=== PATIENT | female | born 1945 | race Asian ===

== ENCOUNTER → 2019-02-04 09:55 | Outpatient (CLI) | payer MEDICARE, SELFPAY ==
[2019-02-04 11:05] LABS: Add Manual Diff / Slide Review NO; Basophils Absolute Auto 100 /uL (0-100); Basophils Percent Auto 1.9 % (0-2); Eosinophils Absolute Auto 200 /uL (0-450); Eosinophils Percent Auto 5.4 % (2-4); Hematocrit 40.2 % (36-46); Hemoglobin 14.3 g/dL (12.0-16.0); Lymphocytes Absolute Auto 2200 /uL (1100-4500); Lymphocytes Percent Auto 49.9 % (25-40); Mean Corpuscular HGB Conc 35.5 % (30-36); Mean Corpuscular Volume 90.2 fL (80-100); Monocytes Absolute Auto 400 /uL (0-900); Monocytes Percent Auto 8.8 % (3-14); Neutrophils Absolute Auto 1500 /uL (1500-7000); Platelet Count 226 X10^3/uL (150-400); Red Blood Cell Count 4.46 X10^6/uL (4.0-5.2); Red Cell Distribution Width 12.3 % (11.6-14.8); White Blood Cell Count 4.5 X10^3/uL (4.5-11.0)
[2019-02-04 12:10] LABS: Alanine Aminotransferase 22 IU/L (9-52); Albumin Globulin Ratio 1.4 (1.0-2.8); Alkaline Phosphatase 59 U/L (38-126); Aspartate Aminotransferase 38 IU/L (14-36); BUN Creatinine Ratio 17.8 (6-22); Blood Urea Nitrogen 16 mg/dL (7-17); Calcium 9.9 mg/dL (8.4-10.2); Carbon Dioxide 29 mmol/L (22-32); Chloride 97 mmol/L (98-107); Cholesterol 232 mg/dL (140-199); Estimated Glomerular Filt Rate > 60.0 mL/min (>60); Globulin 3.7 g/dL (1.7-4.1); Glucose 108 mg/dL (80-110); HDL Cholesterol 72 mg/dL (40-60); HEMOLYSIS < 15 (0-50); LDL Cholesterol Calculated 137 mg/dL (<100); Sodium 137 mmol/L (137-145); Total Protein 8.7 g/dL (6.3-8.2); Triglycerides 117 mg/dL (35-150)
[2019-02-04 12:38] LABS: Thyroid Stimulating Hormone 1.71 uIU/mL (0.47-4.68)
== END ==
PROVIDERS: Family Provider Internal Medicine; PCP Internal Medicine; Visit Provider Internal Medicine
DX: I10 Essential (primary) hypertension (principal); E78.5 Hyperlipidemia, unspecified
CPT/HCPCS: 36415; 80053; 80061; 84443; 85025

== ENCOUNTER → 2019-02-10 14:49 | Outpatient (CLI) | payer MEDICARE, SELFPAY ==
--- NOTE | 2019-02-10 | DI.MG.S_ITS ---
BILATERAL DIGITAL SCREENING MAMMOGRAM 3D/2D WITH CAD: 02/10/2019 CLINICAL: Routine screening. Family history of breast cancer. Comparison is made to exams dated: 01/29/2018 mammogram, 12/24/2014 mammogram, and 02/06/2002 mammogram - [facility]. The tissue of both breasts is predominantly fatty. Current study was also evaluated with a Computer Aided Detection (CAD) system. No significant masses, calcifications, or other findings are seen in either breast. There has been no significant interval change. IMPRESSION: NEGATIVE There is no mammographic evidence of malignancy. A 1 year screening mammogram is recommended. This exam was interpreted at Station ID: [id number]. NOTE: For mammograms, a report in lay terms will be sent to the patient. Approximately 15% of breast malignancies will not be visualized mammographically. In the management of a palpable breast mass, a negative mammogram must not discourage biopsy of a clinically suspicious lesion. Electronically Signed By: Solange romano/kayy:02/10/2019 15:27:48 letter sent: Normal Exam ACR BI-RADS Category 1: Negative 3341F
== END ==
PROVIDERS: Family Provider Internal Medicine; PCP Internal Medicine; Visit Provider Internal Medicine
DX: Z12.31 Encounter for screening mammogram for malignant neoplasm of breast (principal); Z80.3 Family history of malignant neoplasm of breast
CPT/HCPCS: 77063; 77067

== ENCOUNTER → 2019-08-22 14:06 | Outpatient (CLI) | payer MEDICARE, SELFPAY | PROVIDERS: PCP Internal Medicine; Visit Provider Internal Medicine | DX: M85.852 Other specified disorders of bone density and structure, left thigh (principal); Z78.0 Asymptomatic menopausal state; I10 Essential (primary) hypertension; E78.5 Hyperlipidemia, unspecified; M25.50 Pain in unspecified joint; Z87.891 Personal history of nicotine dependence | CPT/HCPCS: 36415; 77080; 80053; 80061; 85025 ==

== ENCOUNTER → 2019-08-22 14:23 | Outpatient (CLI) | payer MEDICARE, SELFPAY ==
[2019-08-22 14:47] LABS: Add Manual Diff / Slide Review NO; Basophils Absolute Auto 100 /uL (0-100); Basophils Percent Auto 2.4 % (0-2); Eosinophils Absolute Auto 200 /uL (0-450); Eosinophils Percent Auto 3.2 % (2-4); Hemoglobin 13.6 g/dL (12.0-16.0); Lymphocytes Absolute Auto 1900 /uL (1100-4500); Lymphocytes Percent Auto 36.4 % (25-40); Mean Corpuscular Hemoglobin 31.7 PG (26-34); Mean Corpuscular Volume 90.6 fL (80-100); Monocytes Absolute Auto 400 /uL (0-900); Monocytes Percent Auto 8.5 % (3-14); Neutrophils Absolute Auto 2600 /uL (1500-7000); Neutrophils Percent Auto 49.5 % (50-75); Platelet Count 230 X10^3/uL (150-400); White Blood Cell Count 5.2 X10^3/uL (4.5-11.0)
[2019-08-22 15:33] LABS: Alanine Aminotransferase 19 IU/L (<35); Albumin 4.5 g/dL (3.5-5.0); Albumin Globulin Ratio 1.6 (1.0-2.8); Alkaline Phosphatase 73 U/L (38-126); Aspartate Aminotransferase 33 IU/L (14-36); BUN Creatinine Ratio 18.9 (6-22); Blood Urea Nitrogen 17 mg/dL (7-17); Calcium 9.5 mg/dL (8.4-10.2); Carbon Dioxide 31 mmol/L (22-32); Chloride 97 mmol/L (98-107); Cholesterol 211 mg/dL (140-199); Estimated Glomerular Filt Rate > 60.0 mL/min (>60); Globulin 2.9 g/dL (1.7-4.1); Glucose 102 mg/dL (80-110); HDL Cholesterol 83 mg/dL (40-60); HEMOLYSIS < 15 (0-50); LDL Cholesterol Calculated 105 mg/dL (<100); Potassium 3.4 mmol/L (3.4-5.1); Sodium 137 mmol/L (137-145); Total Protein 7.4 g/dL (6.3-8.2); Triglycerides 114 mg/dL (35-150)
== END ==
PROVIDERS: PCP Internal Medicine; Visit Provider Internal Medicine
DX: I10 Essential (primary) hypertension (principal); E78.5 Hyperlipidemia, unspecified; M25.50 Pain in unspecified joint
CPT/HCPCS: 36415; 80053; 80061; 85025

== ENCOUNTER → 2020-10-26 10:41 | Outpatient (CLI) | payer MEDICARE, SELFPAY ==
[2020-10-26 12:13] LABS: Add Manual Diff / Slide Review NO; Basophils Absolute Auto 100 /uL (0-100); Basophils Percent Auto 1.9 % (0-2); Eosinophils Absolute Auto 100 /uL (0-450); Eosinophils Percent Auto 2.7 % (2-4); Hematocrit 40.4 % (36-46); Hemoglobin 13.8 g/dL (12.0-16.0); Lymphocytes Absolute Auto 1300 /uL (1100-4500); Lymphocytes Percent Auto 29.7 % (25-40); Mean Corpuscular HGB Conc 34.1 % (30-36); Mean Corpuscular Hemoglobin 31.1 PG (26-34); Mean Corpuscular Volume 91.3 fL (80-100); Monocytes Absolute Auto 400 /uL (0-900); Neutrophils Absolute Auto 2500 /uL (1500-7000); Neutrophils Percent Auto 57.7 % (50-75); Platelet Count 221 X10^3/uL (150-400); Red Blood Cell Count 4.43 X10^6/uL (4.0-5.2); Red Cell Distribution Width 12.6 % (11.6-14.8); White Blood Cell Count 4.4 X10^3/uL (4.5-11.0)
[2020-10-26 12:34] LABS: Alanine Aminotransferase 22 IU/L (<35); Albumin 4.5 g/dL (3.5-5.0); Albumin Globulin Ratio 1.4 (1.0-2.8); Alkaline Phosphatase 64 U/L (38-126); Aspartate Aminotransferase 37 IU/L (14-36); BUN Creatinine Ratio 23.3 (6-22); Bilirubin Total 1.4 mg/dL (0.2-1.3); Blood Urea Nitrogen 20 mg/dL (7-17); Calcium 9.4 mg/dL (8.4-10.2); Carbon Dioxide 32 mmol/L (22-32); Chloride 97 mmol/L (98-107); Cholesterol 218 mg/dL (140-199); Estimated Glomerular Filt Rate > 60.0 mL/min (>60); Globulin 3.2 g/dL (1.7-4.1); Glucose 89 mg/dL (80-110); HDL Cholesterol 79 mg/dL (40-60); HEMOLYSIS < 15 (0-50); LDL Cholesterol Calculated 124 mg/dL (<100); Potassium 3.2 mmol/L (3.4-5.1); Sodium 133 mmol/L (137-145); Total Protein 7.7 g/dL (6.3-8.2); Triglycerides 73 mg/dL (35-150)
[2020-10-26 13:04] LABS: Thyroid Stimulating Hormone 1.07 uIU/mL (0.47-4.68)
[2020-10-28 11:37] LABS: Hep C Virus Ab w/Reflex Quant NEGATIVE s/c (NEGATIVE)
== END ==
PROVIDERS: PCP Internal Medicine; Referring Provider Internal Medicine; Visit Provider Internal Medicine
DX: Z13.0 Encounter for screening for diseases of the blood and blood-forming organs and certain disorders involving the immune mechanism (principal); I10 Essential (primary) hypertension; E78.5 Hyperlipidemia, unspecified; Z13.29 Encounter for screening for other suspected endocrine disorder; Z11.59 Encounter for screening for other viral diseases
CPT/HCPCS: 36415; 80053; 80061; 84443; 85025; 86803

== ENCOUNTER → 2020-11-06 10:31 | Outpatient (CLI) | payer MEDICARE, SELFPAY ==
--- NOTE | 2020-11-06 | DI.US.S_ITS ---
PROCEDURE: US CAROTID DOPPLER BI INDICATIONS: Other specified symptoms and signs involving the c TECHNIQUE: Color and pulse Doppler interrogation was performed of both carotid systems, with image documentation and velocity measurements. COMPARISON: None. FINDINGS: Stenosis calculations are based on SRU (Society of Radiologists in Ultrasound) criteria. Right side: Common Carotid Artery PSV: - Distal: 69.9 cm/s Internal Carotid Artery PSV - 62 cm/s EDV- 23 cm/s External Carotid Artery PSV- Proximal: 63 cm/s ICA/CCA PSV- Ratio: 0.88 Cabrera scale imaging description: No plaque. Widely patent vessels Percent internal carotid artery stenosis: None . Vertebral artery: Flow direction is antegrade. Left side: Common Carotid Artery PSV- Distal: 68 cm/s Internal Carotid Artery PSV- 62 cm/s EDV- 23 cm/s External Carotid Artery PSV- Proximal: 58 cm/s ICA/CCA PSV- Ratio: 0.9 Cabrera scale imaging description: Widely patent vessels. No plaque. Percent internal carotid artery stenosis: Non . Vertebral artery: Flow direction is antegrade. IMPRESSION: Unremarkable carotid ultrasound. Widely patent vessels. No plaque. Dictated by: Yamil Ramos M.D. on 11/06/2020 at 11:41 Approved by: Yamil Ramos M.D. on 11/06/2020 at 11:47
== END ==
PROVIDERS: PCP Internal Medicine; Referring Provider Internal Medicine; Visit Provider Internal Medicine
DX: R09.89 Other specified symptoms and signs involving the circulatory and respiratory systems (principal)
CPT/HCPCS: 93880

== ENCOUNTER → 2021-02-01 10:44 | Outpatient (CLI) | payer MEDICARE, SELFPAY ==
[2021-02-01 12:12] LABS: Blood Urea Nitrogen 18 mg/dL (7-17); Carbon Dioxide 26 mmol/L (22-32); Chloride 103 mmol/L (98-107); Estimated Glomerular Filt Rate > 60.0 mL/min (>60); Glucose 108 mg/dL (80-110); HEMOLYSIS < 15 (0-50); Potassium 4.1 mmol/L (3.4-5.1); Sodium 138 mmol/L (137-145)
== END ==
PROVIDERS: PCP Internal Medicine; Referring Provider Internal Medicine; Visit Provider Internal Medicine
DX: E87.1 Hypo-osmolality and hyponatremia (principal); E87.6 Hypokalemia; I10 Essential (primary) hypertension
CPT/HCPCS: 36415; 80048

== ENCOUNTER → 2021-05-24 09:52 | Outpatient (CLI) | payer MEDICARE, SELFPAY ==
[2021-05-24 10:28] LABS: Hemoglobin A1C% w Est Avg Glu 5.6 % (4.0-6.0)
[2021-05-24 10:29] LABS: Alanine Aminotransferase 22 IU/L (<35); Albumin 4.5 g/dL (3.5-5.0); Albumin Globulin Ratio 1.5 (1.0-2.8); Alkaline Phosphatase 62 U/L (38-126); Aspartate Aminotransferase 36 IU/L (14-36); Bilirubin Total 1.1 mg/dL (0.2-1.3); Blood Urea Nitrogen 17 mg/dL (7-17); Calcium 9.6 mg/dL (8.4-10.2); Carbon Dioxide 26 mmol/L (22-32); Chloride 104 mmol/L (98-107); Cholesterol 203 mg/dL (140-199); Estimated Glomerular Filt Rate > 60.0 mL/min (>60); Glucose 109 mg/dL (80-110); HDL Cholesterol 83 mg/dL (40-60); HEMOLYSIS < 15 (0-50); LDL Cholesterol Calculated 102 mg/dL (<100); Potassium 4.5 mmol/L (3.4-5.1); Sodium 138 mmol/L (137-145); Total Protein 7.5 g/dL (6.3-8.2); Triglycerides 90 mg/dL (35-150)
== END ==
PROVIDERS: PCP Internal Medicine; Referring Provider Internal Medicine; Visit Provider Internal Medicine
DX: E87.1 Hypo-osmolality and hyponatremia (principal); I10 Essential (primary) hypertension; E87.6 Hypokalemia; E87.5 Hyperkalemia
CPT/HCPCS: 36415; 80053; 80061; 83036

== ENCOUNTER → 2022-09-07 15:28 | Outpatient (CLI) | payer MEDICARE, SELFPAY ==
[2022-09-07 17:38] LABS: Add Manual Diff / Slide Review NO; Basophils Absolute Auto 100 /uL (0-100); Basophils Percent Auto 1.3 % (0-2); Eosinophils Absolute Auto 200 /uL (0-450); Eosinophils Percent Auto 4.5 % (2-4); Hematocrit 40.3 % (36-46); Hemoglobin 13.6 g/dL (12.0-16.0); Lymphocytes Absolute Auto 2000 /uL (1100-4500); Lymphocytes Percent Auto 42.1 % (25-40); Mean Corpuscular HGB Conc 33.8 % (30-36); Mean Corpuscular Hemoglobin 30.6 PG (26-34); Mean Corpuscular Volume 90.7 fL (80-100); Monocytes Absolute Auto 300 /uL (0-900); Monocytes Percent Auto 7.1 % (3-14); Neutrophils Absolute Auto 2100 /uL (1500-7000); Platelet Count 225 X10^3/uL (150-400); Red Blood Cell Count 4.44 X10^6/uL (4.0-5.2); Red Cell Distribution Width 13.2 % (11.6-14.8); White Blood Cell Count 4.7 X10^3/uL (4.5-11.0)
[2022-09-07 18:11] LABS: Alanine Aminotransferase 26 IU/L (<35); Albumin 4.6 g/dL (3.5-5.0); Albumin Globulin Ratio 1.3 (1.0-2.8); Alkaline Phosphatase 68 U/L (38-126); Aspartate Aminotransferase 34 IU/L (14-36); BUN Creatinine Ratio 18.1 (6-22); Bilirubin Total 0.5 mg/dL (0.2-1.3); Blood Urea Nitrogen 15 mg/dL (7-17); Calcium 9.2 mg/dL (8.4-10.2); Carbon Dioxide 28 mmol/L (22-32); Chloride 102 mmol/L (98-107); Cholesterol 213 mg/dL (140-199); Estimated Glomerular Filt Rate > 60 mL/min (>60); Globulin 3.5 g/dL (1.7-4.1); Glucose 101 mg/dL (80-110); HDL Cholesterol 64 mg/dL (40-60); HEMOLYSIS 19 (0-50); Potassium 4.7 mmol/L (3.4-5.1); Sodium 138 mmol/L (137-145); Total Protein 8.1 g/dL (6.3-8.2); Triglycerides 441 mg/dL (35-150)
[2022-09-07 18:34] LABS: Thyroid Stimulating Hormone 1.81 uIU/mL (0.47-4.68)
== END ==
PROVIDERS: PCP Internal Medicine; Referring Provider Internal Medicine; Visit Provider Internal Medicine
DX: Z00.00 Encounter for general adult medical examination without abnormal findings (principal); I10 Essential (primary) hypertension; E78.5 Hyperlipidemia, unspecified; M25.50 Pain in unspecified joint
CPT/HCPCS: 36415; 80053; 80061; 84443; 85025

== ENCOUNTER → 2022-09-17 13:37 | Outpatient (CLI) | payer MEDICARE, SELFPAY ==
--- NOTE | 2022-09-17 | DI.MG.S_ITS ---
BILATERAL DIGITAL SCREENING MAMMOGRAM 3D/2D WITH CAD: 09/17/2022 CLINICAL: Routine screening. Family history of breast cancer. Comparison is made to exams dated: 02/10/2019 mammogram, 01/29/2018 mammogram, and 12/24/2014 mammogram - [facility]. There are scattered areas of fibroglandular density in both breasts (category b / 25%-50% glandular tissue). Current study was also evaluated with a Computer Aided Detection (CAD) system. There are benign vascular calcifications in both breasts. No significant masses, calcifications, or other findings are seen in either breast. There has been no significant interval change. IMPRESSION: BENIGN There is no mammographic evidence of malignancy. A 1 year screening mammogram is recommended. Based on the Tyrer Cuzick model (a risk assessment model) the patient's lifetime risk is 2.1% and her 10 year risk is 0.0%. According to the ACR, ACS, and NCCN guidelines, an annual breast MRI exam along with mammogram is recommended if the patient's lifetime risk is 20% or greater. This exam was interpreted at Station ID: [id number]. NOTE: For mammograms, a report in lay terms will be sent to the patient. Approximately 15% of breast malignancies will not be visualized mammographically. In the management of a palpable breast mass, a negative mammogram must not discourage biopsy of a clinically suspicious lesion. Electronically Signed By: Juan Jose hitchcock/kayy:09/17/2022 14:58:57 letter sent: Normal Exam ACR BI-RADS Category 2: Benign Finding(s) 3342F
== END ==
PROVIDERS: PCP Internal Medicine; Referring Provider Internal Medicine; Visit Provider Internal Medicine
DX: Z12.31 Encounter for screening mammogram for malignant neoplasm of breast (principal); Z80.3 Family history of malignant neoplasm of breast
CPT/HCPCS: 77063; 77067

== ENCOUNTER → 2022-09-26 10:34 | Outpatient (CLI) | payer MEDICARE, SELFPAY ==
[2022-09-26 12:09] LABS: Cholesterol 210 mg/dL (140-199); HDL Cholesterol 80 mg/dL (40-60); LDL Cholesterol Calculated 100 mg/dL (<100); Triglycerides 148 mg/dL (35-150)
== END ==
PROVIDERS: PCP Internal Medicine; Referring Provider Internal Medicine; Visit Provider Internal Medicine
DX: E78.5 Hyperlipidemia, unspecified (principal)
CPT/HCPCS: 36415; 80061

== ENCOUNTER → 2023-01-09 10:27 | Outpatient (CLI) | payer MEDICARE, SELFPAY ==
[2023-01-09 11:43] LABS: BUN Creatinine Ratio 15.4 (6-22); Blood Urea Nitrogen 12 mg/dL (7-17); Calcium 9.5 mg/dL (8.4-10.2); Carbon Dioxide 29 mmol/L (22-32); Chloride 98 mmol/L (98-107); Estimated Glomerular Filt Rate > 60 mL/min (>60); Glucose 105 mg/dL (80-110); HEMOLYSIS < 15 (0-50); Potassium 4.2 mmol/L (3.4-5.1); Sodium 136 mmol/L (137-145)
== END ==
PROVIDERS: PCP Internal Medicine; Referring Provider Internal Medicine; Visit Provider Internal Medicine
DX: I10 Essential (primary) hypertension (principal)
CPT/HCPCS: 36415; 80048

== ENCOUNTER 2023-07-05 17:51 | Emergency (ER) | payer MEDICARE, SELFPAY ==
[2023-07-05] VITALS (13 sets, daily range): BP systolic 138–211; BP diastolic 61–100; PULSE 52–64; RESP 15–24; TEMP 36.7; O2SAT 96–98; BMI 24.4
--- NOTE | 2023-07-05 17:59 | DI.RAD.S_ITS ---
PROCEDURE: XR CHEST 1V INDICATIONS: chest pain TECHNIQUE: One view of the chest was acquired. COMPARISON: None. FINDINGS: Surgical changes and devices: None. Lungs and pleura: Lungs are clear. No pleural effusions or pneumothorax. Mediastinum: Mediastinal contours appear normal. Heart size is normal. Atherosclerotic calcification of the aortic arch is noted. Bones and chest wall: No suspicious bony lesions. Age-appropriate bony degenerative changes are seen. Overlying soft tissues appear unremarkable. IMPRESSION: Portable chest within normal limits for age. Dictated by: Candido Frazier M.D. on 07/05/2023 at 17:50 Approved by: Candido Frazier M.D. on 07/05/2023 at 17:50
[2023-07-05 18:31] LABS: Add Manual Diff / Slide Review NO; Basophils Absolute Auto 100 /uL (0-100); Basophils Percent Auto 1.8 % (0-2); Eosinophils Absolute Auto 300 /uL (0-450); Eosinophils Percent Auto 6.1 % (2-4); Hematocrit 38.9 % (36-46); Hemoglobin 13.7 g/dL (12.0-16.0); Lymphocytes Absolute Auto 2500 /uL (1100-4500); Lymphocytes Percent Auto 48.5 % (25-40); Mean Corpuscular HGB Conc 35.3 % (30-36); Mean Corpuscular Hemoglobin 31.1 PG (26-34); Mean Corpuscular Volume 88.1 fL (80-100); Monocytes Absolute Auto 400 /uL (0-900); Monocytes Percent Auto 8.5 % (3-14); Neutrophils Absolute Auto 1800 /uL (1500-7000); Neutrophils Percent Auto 35.1 % (50-75); Platelet Count 225 X10^3/uL (150-400); Red Blood Cell Count 4.41 X10^6/uL (4.0-5.2); Red Cell Distribution Width 12.8 % (11.6-14.8); White Blood Cell Count 5.2 X10^3/uL (4.5-11.0)
[2023-07-05 18:32] LABS: INR 0.9 (0.9-1.3); Prothrombin Time 10.8 SECONDS (10.1-12.7)
[2023-07-05 18:34] LABS: PTT Partial Thromboplastin Tim 30 SECONDS (26-36)
[2023-07-05 18:37] LABS: Alanine Aminotransferase 21 IU/L (<35); Albumin 4.7 g/dL (3.5-5.0); Albumin Globulin Ratio 1.3 (1.0-2.8); Alkaline Phosphatase 69 U/L (38-126); Aspartate Aminotransferase 30 IU/L (14-36); BUN Creatinine Ratio 11.8 (6-22); Bilirubin Total 0.6 mg/dL (0.2-1.3); Blood Urea Nitrogen 9 mg/dL (7-17); Calcium 9.8 mg/dL (8.4-10.2); Carbon Dioxide 27 mmol/L (22-32); Chloride 94 mmol/L (98-107); Creatine Kinase 77 U/L (30-135); Estimated Glomerular Filt Rate > 60 mL/min (>60); Globulin 3.6 g/dL (1.7-4.1); Glucose 106 mg/dL (80-110); HEMOLYSIS < 15 (0-50); Lipase 86 U/L (23-300); Magnesium 1.9 mg/dL (1.6-2.3); Potassium 3.4 mmol/L (3.4-5.1); Sodium 130 mmol/L (137-145); Total Protein 8.3 g/dL (6.3-8.2)
[2023-07-05 18:49] LABS: Troponin I < 0.012 ng/mL (0.01-0.034)
--- NOTE | 2023-07-05 20:15 | ED_ITS ---
HPI - General Adult General Chief complaint: Hypertension Stated complaint: High BP Time Seen by Provider: 07/05/23 20:14 Source: patient and family Mode of arrival: Ambulatory Limitations: no limitations History of Present Illness HPI narrative: 78-year-old female presents with complaint of elevated blood pressure had checked at home was 187/88 on repeat was 192/103. Patient states she just felt sort of funny which is why they checked a little lightheaded no syncope. No chest pain, no shortness of breath she would a little bit after she arrived, no diaphoresis. No nausea or vomiting, no diarrhea. She is chronically constipated but having bowel movements. No urinary symptoms. No new swelling. Patient takes medication for hypertension dyslipidemia. No prior strokes, heart attacks or diabetes. No prior surgeries. Allergic to codeine and aspirin makes her stomach hurt. No tobacco, alcohol or illicit. Patient's primary care is Darby Koo. Related Data Previous Rx's Medication Instructions Recorded ibuprofen 600 mg tablet 600 mg PO Q6HP PRN #20 tabs 08/24/16 meloxicam 15 mg tablet See Rx Instructions PO DAILY #30 09/05/18 tabs Disabled Parking Permit See Rx Instructions .Route 09/12/18 .COMPLEX #1 unit atenolol 50 mg tablet 50 mg PO QDAY ##90 10/18/18 chlorthalidone 25 mg tablet 25 mg PO QDAY #90 tabs 10/18/18 simvastatin 40 mg tablet (Zocor) 40 mg PO Q DAY #90 tabs 10/18/18 Allergies Allergy/AdvReac Type Severity Reaction Status Date / Time aspirin [ASPIRIN] Allergy Unknown stomach Unverified 07/05/23 17:54 ache codeine [CODEINE] Allergy Unknown Pressure Unverified 07/05/23 17:54 in head Review of Systems Review of Systems ROS Unobtainable: All systems reviewed & are unremarkable except as noted in HPI and below Patient History Medical History Chicken pox Measles Surgical History Anesthesia Status post knee surgery Family History Grandfather Cancer Grandmother Cancer Mother Hypertension High cholesterol Social History Smoking Status: Former smoker Smoking Status: Former smoker Substance Use Type: does not use Exam Narrative Exam Narrative: GENERAL: Alert and oriented x three, well-appearing elderly female in no acute distress. HEENT: Head normocephalic, atraumatic, EOMI, pupils reactive, face symmetric, moist mucous membranes NECK: Supple, full range of motion CARDIOVASCULAR: Regular rate and rhythm without murmurs, rubs or gallops. No edema bilateral lower extremities. No JVD. RESPIRATORY: Breath sounds equal bilaterally, no wheezes rales or rhonchi. No tachypnea. No accessory muscle use. ABDOMEN: Soft, nontender. Normoactive bowel sounds all 4 quadrants. No guarding or rebound, rigidity, no mass : No CVA tenderness EXTREMITIES: Normal range of motion, no clubbing or edema. Neurovascularly intact NEUROLOGICAL: Cranial nerves II through XII grossly intact. Moving all extremities SKIN: Warm, dry, no petechiae, no rashes or lesions. Initial Vital Signs Initial Vital Signs: Vital Signs Temperature 98.0 F 07/05/23 17:54 Pulse Rate 64 07/05/23 17:54 Respiratory Rate 17 07/05/23 17:54 Blood Pressure 211/100 H 07/05/23 17:54 Pulse Oximetry 97 07/05/23 17:54 Oxygen Delivery Method Room Air 07/05/23 17:54 Course Orders Ordered: ED Orders 07/05/23 17:59 XR chest 1V Stat EKG-12 Lead Stat 07/05/23 18:10 Complete Blood Count AUTO DIFF Stat Comprehensive Metabolic Panel Stat Lipase Stat Magnesium Stat PTT Partial Thromboplastin Salo Stat Prothrombin Time INR Stat Troponin & CK Cardiac Panel Stat 07/05/23 20:20 Trop I [Troponin I] Stat Vital Signs Vital signs: Vital Signs - 8 hr 07/05/23 22:00 07/05/23 22:00 07/05/23 22:30 Pulse Rate 55 L Respiratory Rate 19 Blood Pressure 166/74 H 163/73 H Pulse Oximetry 97 07/05/23 22:30 07/05/23 23:00 07/05/23 23:01 Pulse Rate 56 L 54 L 55 L Respiratory Rate 17 17 15 Blood Pressure Pulse Oximetry 97 97 97 07/05/23 23:01 07/05/23 23:30 07/05/23 23:31 Pulse Rate 54 L Respiratory Rate 20 Blood Pressure 153/69 H 140/65 Pulse Oximetry 96 07/05/23 23:31 Pulse Rate 54 L Respiratory Rate 19 Blood Pressure Pulse Oximetry 97 Medical Decision Making Lab Data 07/05/23 18:10 07/05/23 18:10 Labs: Lab Results 07/05/23 07/05/23 07/05/23 Range/Units 18:10 18:10 18:10 WBC 5.2 (4.5-11.0) X10^3/uL RBC 4.41 (4.0-5.2) X10^6/uL Hgb 13.7 (12.0-16.0) g/dL Hct 38.9 (36-46) % MCV 88.1 (80-100) fL MCH 31.1 (26-34) PG MCHC 35.3 (30-36) % RDW 12.8 (11.6-14.8) % Plt Count 225 (150-400) X10^3/uL Neut % (Auto) 35.1 L (50-75) % Lymph % (Auto) 48.5 H (25-40) % [place] % (Auto) 8.5 (3-14) % Eos % (Auto) 6.1 H (2-4) % Baso % (Auto) 1.8 (0-2) % Neut # (Auto) 1800 (5941-3896) /uL Lymph # (Auto) 2500 (9452-7970) /uL [place] # (Auto) 400 (0-900) /uL Eos # (Auto) 300 (0-450) /uL Baso # (Auto) 100 (0-100) /uL PT 10.8 (10.1-12.7) SECONDS INR 0.9 (0.9-1.3) APTT 30 (26-36) SECONDS Sodium 130 L (137-145) mmol/L Potassium 3.4 (3.4-5.1) mmol/L Chloride 94 L (98-107) mmol/L Carbon Dioxide 27 (22-32) mmol/L BUN 9 (7-17) mg/dL Creatinine 0.76 (0.52-1.04) mg/dL Estimated GFR > 60 (>60) mL/min BUN/Creatinine Ratio 11.8 (6-22) Glucose 106 (80-110) mg/dL Calcium 9.8 (8.4-10.2) mg/dL Magnesium 1.9 (1.6-2.3) mg/dL Total Bilirubin 0.6 (0.2-1.3) mg/dL AST 30 (14-36) IU/L ALT 21 (<35) IU/L Alkaline Phosphatase 69 (38-126) U/L Total Creatine Kinase 77 (30-135) U/L Troponin I < 0.012 (0.01-0.034) ng/mL Total Protein 8.3 H (6.3-8.2) g/dL Albumin 4.7 (3.5-5.0) g/dL Globulin 3.6 (1.7-4.1) g/dL Albumin/Globulin Ratio 1.3 (1.0-2.8) Lipase 86 (23-300) U/L 07/05/23 Range/Units 20:20 WBC (4.5-11.0) X10^3/uL RBC (4.0-5.2) X10^6/uL Hgb (12.0-16.0) g/dL Hct (36-46) % MCV (80-100) fL MCH (26-34) PG MCHC (30-36) % RDW (11.6-14.8) % Plt Count (150-400) X10^3/uL Neut % (Auto) (50-75) % Lymph % (Auto) (25-40) % [place] % (Auto) (3-14) % Eos % (Auto) (2-4) % Baso % (Auto) (0-2) % Neut # (Auto) (1104-0317) /uL Lymph # (Auto) (3173-1274) /uL [place] # (Auto) (0-900) /uL Eos # (Auto) (0-450) /uL Baso # (Auto) (0-100) /uL PT (10.1-12.7) SECONDS INR (0.9-1.3) APTT (26-36) SECONDS Sodium (137-145) mmol/L Potassium (3.4-5.1) mmol/L Chloride (98-107) mmol/L Carbon Dioxide (22-32) mmol/L BUN (7-17) mg/dL Creatinine (0.52-1.04) mg/dL Estimated GFR (>60) mL/min BUN/Creatinine Ratio (6-22) Glucose (80-110) mg/dL Calcium (8.4-10.2) mg/dL Magnesium (1.6-2.3) mg/dL Total Bilirubin (0.2-1.3) mg/dL AST (14-36) IU/L ALT (<35) IU/L Alkaline Phosphatase (38-126) U/L Total Creatine Kinase (30-135) U/L Troponin I < 0.012 (0.01-0.034) ng/mL Total Protein (6.3-8.2) g/dL Albumin (3.5-5.0) g/dL Globulin (1.7-4.1) g/dL Albumin/Globulin Ratio (1.0-2.8) Lipase (23-300) U/L Imaging Data Chest x-ray: Radiologist's Impression: [place] [address] XRay Report Signed Patient: Evita Walters MR#: [id number] : 1945 Acct:[id number] Age/Sex: 78 / F Date of Service: 07/05/23 Loc: ED Accession Number: [id number] ?? Procedure: XR chest 1V Ordering Provider: Leola Montiel D.O. PROCEDURE:? XR CHEST 1V ? INDICATIONS:? chest pain ? TECHNIQUE:? One view of the chest was acquired.? ? COMPARISON:? None. ? FINDINGS:? ? Surgical changes and devices:? None.? ? Lungs and pleura:? Lungs are clear.? No pleural effusions or pneumothorax.? ? Mediastinum:? Mediastinal contours appear normal.? Heart size is normal.? Atherosclerotic calcification of the aortic arch is noted.? ? Bones and chest wall:? No suspicious bony lesions.? Age-appropriate bony degenerative changes are seen. ? Overlying soft tissues appear unremarkable.? ? ? IMPRESSION:? Portable chest within normal limits for age. ? ? Dictated by: Candido Frazier M.D. on 07/05/2023 at 17:50 ? ? Approved by: Candido Frazier M.D. on 07/05/2023 at 17:50?? ECG Data Attestation: I personally reviewed and interpreted this ECG as follows: Prior ECG tracings: not available for review Interpretation: Sinus rhythm rate of 61 ID 172 QRS of 90, QTC [address] elevation depression noted. No priors. MDM Narrative Medical decision making narrative: Pleasant 78-year-old female comes in with complaint of elevated blood pressure she felt funny little lightheaded earlier, patient denies any other symptoms. She was hypertensive initially but improved without any intervention. Noted sodium is 130 chloride 94 but CBC, CMP, troponin x2, EKG do not show any other acute changes. Patient does not have priors for EKG for comparison. Chest x- ray shows no acute change. After discussion with patient and family plan for her to follow up with her sodium level, continue to monitor her blood pressure and return precautions were discussed but patient felt appropriate for discharge home. Discharge Plan Departure Patient Disposition: Home Clinical Impression: Hyponatremia Activity Restrictions/Additional Instructions: Please follow-up with your physician for recheck. Your sodium level is a little bit low today, follow up with your physician to have this rechecked. Continue your home medications as prescribed. Please return for new or worsening symptoms lightheadedness, passing out, new chest pain, shortness of breath, persistent vomiting, black or bloody stools or other new or concerning changes. Prescriptions: No Action ibuprofen 600 MG tablet 600 mg PO Q6HP PRNQty: 20 0RF Disabled Parking Permit See Rx Instructions .Route .COMPLEX Qty: 1 0RF Rx Instructions: I find this patient to be medically disabled and qualify for disabled parking as indicated and signed on the accompanying disabled parking application for individuals. simvastatin [Zocor] 40 mg tablet 40 mg PO Q DAY Qty: 90 0RF chlorthalidone 25 mg tablet 25 mg PO QDAY Qty: 90 0RF atenolol 50 mg tablet 50 mg PO QDAY Qty: 90 0RF meloxicam 15 mg tablet See Rx Instructions PO DAILY Qty: 30 2RF Dose Instruction: PO DAILY; Rx Instructions: 1/2-1 tablet PO DAILY; Referrals: Darby Koo ARNP [Primary Care Provider] - Stand Alone Forms: Patient Portal/API
[2023-07-05 21:02] LABS: Troponin I < 0.012 ng/mL (0.01-0.034)
== END 2023-07-06 00:05 | disposition home or self-care (01) ==
PROVIDERS: Emergency Provider Emergency Medicine; PCP Internal Medicine
DX: E87.1 Hypo-osmolality and hyponatremia (principal); R07.9 Chest pain, unspecified; I10 Essential (primary) hypertension
CPT/HCPCS: 36415; 71045; 80053; 82550; 83690; 83735; 84484; 85025; 85610; 85730; 93005; 99284

== ENCOUNTER 2023-08-06 17:23 | Emergency (ER) | payer MEDICARE, SELFPAY ==
--- NOTE | 2023-08-06 17:25 | ED_ITS ---
HPI - Extremity Injury (Lower) <Neo Miranda PA-C - Last Filed: 08/06/23 18:21> General Chief Complaint: Extremity Problem,Nontraumatic Stated Complaint: rt leg pain, no known injury Time Seen by Provider: 08/06/23 17:24 History of Present Illness HPI Narrative: This is a 78-year-old female presents emergency department due to right hip pain onset 5 hours ago. She says recall any injuries to her right knee. She is not complaining of any calf pain or hip pain. She denies any swelling or numbness in her distal extremity. Related Data Previous Rx's Medication Instructions Recorded ibuprofen 600 mg tablet 600 mg PO Q6HP PRN #20 tabs 08/24/16 meloxicam 15 mg tablet See Rx Instructions PO DAILY #30 09/05/18 tabs Disabled Parking Permit See Rx Instructions .Route 09/12/18 .COMPLEX #1 unit atenolol 50 mg tablet 50 mg PO QDAY ##90 10/18/18 chlorthalidone 25 mg tablet 25 mg PO QDAY #90 tabs 10/18/18 simvastatin 40 mg tablet (Zocor) 40 mg PO Q DAY #90 tabs 10/18/18 Allergies Allergy/AdvReac Type Severity Reaction Status Date / Time aspirin [ASPIRIN] Allergy Unknown stomach Unverified 07/05/23 17:54 ache codeine [CODEINE] Allergy Unknown Pressure Unverified 07/05/23 17:54 in head Review of Systems <Neo Miranda PA-C - Last Filed: 08/06/23 18:21> Review of Systems Narrative: GENERAL: Denies chills, fatigue, malaise, fever, sweats. HEENT: Denies sinus pain, ear pain, sore throat, difficulty swallowing, dizziness. RESPIRATORY: Denies dyspnea, cough, wheezing, hemoptysis, sputum. CARDIOVASCULAR: Denies chest pain, palpitations, orthopnea, edema, GASTROINTESTINAL: Denies nausea, vomiting, abdominal pain, diarrhea, constipation, melena. : Denies dysuria, frequency, incontinence, hematuria, urinary retention. MUSCULOSKELETAL: Reports right knee pain SKIN: Denies rash, skin lesions, or other NEUROLOGIC: Denies weakness, headache, numbness, change in speech, confusion, seizures, incoordination. PSYCHIATRIC: No concerning psychosocial issues. 12 point review of systems is negative except for those stated above Patient History <Neo Miranda PA-C - Last Filed: 08/06/23 18:21> Medical History Chicken pox Measles Surgical History Anesthesia Status post knee surgery Family History Grandfather Cancer Grandmother Cancer Mother Hypertension High cholesterol Social History Smoking Status: Former smoker Smoking Status: Former smoker Substance Use Type: does not use Exam <Neo Miranda PA-C - Last Filed: 08/06/23 18:21> Narrative Exam Narrative: GENERAL: Well-developed patient, in mild distress. HEAD: Atraumatic. Normocephalic. EYES: Pupils equal round and reactive. Extraocular motions intact. No scleral icterus. No injection or drainage. ENT: Nose without bleeding, purulent drainage. Throat without erythema, tonsillar hypertrophy or exudate. Airway patent. NECK: Trachea midline. Non tender CARDIOVASCULAR: Regular rate and rhythm without murmurs, gallops, or rubs. RESPIRATORY: Clear to auscultation. Breath sounds equal bilaterally. No wheezes, rales, or rhonchi. GASTROINTESTINAL: Abdomen soft, non-tender, nondistended. EXTREMITIES: Tenderness to palpation of the medial right knee. No calf tend erness to palpation. No laxity noticed on exam. BACK: Nontender without deformity or crepitance. No flank tenderness. NEURO: AOx3. SKIN: No rash or erythema of visible areas Initial Vital Signs Initial Vital Signs: Vital Signs Temperature 98.3 F 08/06/23 17:26 Pulse Rate 70 08/06/23 17:26 Respiratory Rate 16 08/06/23 17:26 Blood Pressure 187/89 H 08/06/23 17:26 Pulse Oximetry 98 08/06/23 17:26 Oxygen Delivery Method Room Air 08/06/23 17:26 <Ralph Fischer DO - Last Filed: 09/15/23 07:33> Initial Vital Signs Initial Vital Signs: Vital Signs Temperature 98.3 F 08/06/23 17:26 Pulse Rate 70 08/06/23 17:26 Respiratory Rate 16 08/06/23 17:26 Blood Pressure 187/89 H 08/06/23 17:26 Pulse Oximetry 98 08/06/23 17:26 Oxygen Delivery Method Room Air 08/06/23 17:26 Course <Neo Miranda PA-C - Last Filed: 08/06/23 18:21> Orders Ordered: ED Orders 08/06/23 17:29 XR knee RT 3V Stat Vital Signs Vital signs: Vital Signs - 8 hr 08/06/23 17:26 Temperature 98.3 F Pulse Rate 70 Respiratory Rate 16 Blood Pressure 187/89 H Pulse Oximetry 98 Oxygen Delivery Method Room Air <Ralph Fischer DO - Last Filed: 09/15/23 07:33> Orders Ordered: ED Orders 08/06/23 17:29 XR knee RT 3V Stat Vital Signs Vital signs: Vital Signs - 8 hr 08/06/23 17:26 Temperature 98.3 F Pulse Rate 70 Respiratory Rate 16 Blood Pressure 187/89 H Pulse Oximetry 98 Oxygen Delivery Method Room Air MDM - Extremity Injury (Lower) <Neo Miranda PA-C - Last Filed: 08/06/23 18:21> Imaging Data Extremity x-ray #1: Radiologist's Impression: [place] [address] XRay Report Signed Patient: Evita Walters MR#: [id number] : 1945 Acct:[id number] Age/Sex: 78 / F Date of Service: 08/06/23 Loc: ED Accession Number: [id number] Procedure: XR knee RT 3V Ordering Provider: Neo Miranda P.A-C PROCEDURE: XR KNEE RT 3V INDICATIONS: R knee pain TECHNIQUE: 3 views of the knee were acquired. COMPARISON: None. FINDINGS: Bones: No fractures or dislocations. No suspicious bony lesions. Tricompartmental joint space narrowing with associated osteophytosis. Soft tissues: Moderate joint effusion. No suspicious soft tissue calcifications. IMPRESSION: Moderate knee joint effusion without displaced fracture. [id number] tricompartmental osteoarthritis. Dictated by: Alejandro Abreu M.D. on 08/06/2023 at 18:14 Approved by: Alejandro Abreu M.D. on 08/06/2023 at 18:14 MDM Narrative Medical decision making narrative: MDM * differential diagnosis includes but not limited to right knee fracture, DVT, right knee sprain * Prior records reviewed: Patient was seen here a month ago for elevated blood pressure readings. Blood pressures were in the proximally the 190s. Unremarkable workup patient was found to be hyponatremic with a sodium of 130 and recommend follow up with the primary care provider. * My lab interpretation: None obtained * My imgaing interpretation: X-ray negative for fractures but did show moderate effusion as well as osteoarthritis * Clinical Decision Rules/Scores evaluated: None * Independent discussions with: None ED Course: This is a 78-year-old female presents to the emergency department complaining of right knee pain. She would there was no tenderness in the popliteal space or in the right calf concerning for DVT she did have bony tenderness at the medial tubercle. X-ray was ordered which showed a fusion as well as osteoarthritis which maybe contributing to the patient's pain. Recommended rest, ice, compression, elevation. No fractures noted. Shared Decision Making: Discussed plan with patient who is comfortable with the plan. Social Considerations: None Disposition: Discharged to home Discharge Plan Departure Patient Disposition: Home Clinical Impression: Knee sprain Activity Restrictions/Additional Instructions: Thank you for coming to the [facility] Emergency Department today. Your right knee x-ray shows no fractures. It does show a small amount of fluid in the joint which may suggest a sprain. I recommend rest, ice, elevation, ibuprofen. If your symptoms continue recommended following up with the primary care provider. I hope you feel better soon. Please follow up with your primary care provider within a week if your symptoms continue. If you do not have a primary care provider please contact the [facility] Resource line at [phone]. They will ask some questions about your medical history and help you get set up with a provider in the community. Prescriptions: No Action ibuprofen 600 MG tablet 600 mg PO Q6HP PRNQty: 20 0RF Disabled Parking Permit See Rx Instructions .Route .COMPLEX Qty: 1 0RF Rx Instructions: I find this patient to be medically disabled and qualify for disabled parking as indicated and signed on the accompanying disabled parking application for individuals. simvastatin [Zocor] 40 mg tablet 40 mg PO Q DAY Qty: 90 0RF chlorthalidone 25 mg tablet 25 mg PO QDAY Qty: 90 0RF atenolol 50 mg tablet 50 mg PO QDAY Qty: 90 0RF meloxicam 15 mg tablet See Rx Instructions PO DAILY Qty: 30 2RF Dose Instruction: PO DAILY; Rx Instructions: 1/2-1 tablet PO DAILY; Referrals: Darby Koo ARNP [Primary Care Provider] - Stand Alone Forms: Patient Portal/API ED Sign-out <Ralph Fischer DO - Last Filed: 09/15/23 07:33> Cosign ED Attending Marquis Attestation: I was immediately available in the department for consultation. Documentation has been reviewed. I agree with assessment and plan.
[2023-08-06 17:26] VITALS: BP 187/89; PULSE 70; RESP 16; TEMP 36.8; O2SAT 98; BMI 24.4
--- NOTE | 2023-08-06 17:29 | DI.RAD.S_ITS ---
PROCEDURE: XR KNEE RT 3V INDICATIONS: R knee pain TECHNIQUE: 3 views of the knee were acquired. COMPARISON: None. FINDINGS: Bones: No fractures or dislocations. No suspicious bony lesions. Tricompartmental joint space narrowing with associated osteophytosis. Soft tissues: Moderate joint effusion. No suspicious soft tissue calcifications. IMPRESSION: Moderate knee joint effusion without displaced fracture. [id number] tricompartmental osteoarthritis. Dictated by: Alejandro Abreu M.D. on 08/06/2023 at 18:14 Approved by: Alejandro Abreu M.D. on 08/06/2023 at 18:14
[2023-08-06 18:22] VITALS: BP 184/93; PULSE 67; RESP 18; O2SAT 99
== END 2023-08-06 18:29 | disposition home or self-care (01) ==
PROVIDERS: Emergency Provider Physician Assistant Medical; PCP Internal Medicine
DX: S83.91XA Sprain of unspecified site of right knee, initial encounter (principal)
CPT/HCPCS: 73562; 99281; 99283

== ENCOUNTER → 2023-08-10 16:14 | Outpatient (CLI) | payer MEDICARE, SELFPAY ==
[2023-08-10 17:59] LABS: Alanine Aminotransferase 19 IU/L (<35); Albumin 4.2 g/dL (3.5-5.0); Albumin Globulin Ratio 1.2 (1.0-2.8); Alkaline Phosphatase 66 U/L (38-126); Aspartate Aminotransferase 29 IU/L (14-36); BUN Creatinine Ratio 18.4 (6-22); Bilirubin Total 0.5 mg/dL (0.2-1.3); Blood Urea Nitrogen 14 mg/dL (7-17); Calcium 9.3 mg/dL (8.4-10.2); Carbon Dioxide 25 mmol/L (22-32); Chloride 103 mmol/L (98-107); Estimated Glomerular Filt Rate > 60 mL/min (>60); Globulin 3.4 g/dL (1.7-4.1); Glucose 102 mg/dL (80-110); HEMOLYSIS < 15 (0-50); Potassium 4.1 mmol/L (3.4-5.1); Sodium 138 mmol/L (137-145); Total Protein 7.6 g/dL (6.3-8.2)
[2023-08-13 06:40] LABS: Parathyroid Hormone Int 37 pg/mL (15-65)
== END ==
PROVIDERS: PCP Internal Medicine; Referring Provider Internal Medicine; Visit Provider Internal Medicine
DX: E83.52 Hypercalcemia (principal); I10 Essential (primary) hypertension
CPT/HCPCS: 36415; 80053; 83970

== ENCOUNTER → 2023-12-02 16:05 | Outpatient (CLI) | payer MEDICARE, SELFPAY ==
--- NOTE | 2023-12-02 | DI.MG.S_ITS ---
BILATERAL DIGITAL SCREENING MAMMOGRAM 3D/2D WITH CAD: 12/02/2023 CLINICAL: Routine screening. Family history of breast cancer. Comparison is made to exams dated: 09/17/2022 mammogram, 02/10/2019 mammogram, 01/29/2018 mammogram, and 12/24/2014 mammogram - [facility]. There are scattered areas of fibroglandular density in both breasts (category b / 25%-50% glandular tissue). Current study was also evaluated with a Computer Aided Detection (CAD) system. No significant masses, calcifications, or other findings are seen in either breast. There has been no significant interval change. IMPRESSION: NEGATIVE There is no mammographic evidence of malignancy. A 1 year screening mammogram is recommended. Based on the Tyrer Cuzick model (a risk assessment model) the patient's lifetime risk is 1.8% and her 10 year risk is 0.0%. According to the ACR, ACS, and NCCN guidelines, an annual breast MRI exam along with mammogram is recommended if the patient's lifetime risk is 20% or greater. This exam was interpreted at Station ID: [id number]. NOTE: For mammograms, a report in lay terms will be sent to the patient. Approximately 15% of breast malignancies will not be visualized mammographically. In the management of a palpable breast mass, a negative mammogram must not discourage biopsy of a clinically suspicious lesion. Electronically Signed By: Juan Jose hitchcock/kayy:12/03/2023 08:43:58 letter sent: Normal Exam ACR BI-RADS Category 1: Negative 3341F
== END ==
LOC: MAMMO 16:06
PROVIDERS: PCP Internal Medicine; Referring Provider Internal Medicine; Visit Provider Internal Medicine
DX: Z12.31 Encounter for screening mammogram for malignant neoplasm of breast (principal); Z80.3 Family history of malignant neoplasm of breast; R92.323 Mammographic fibroglandular density, bilateral breasts
CPT/HCPCS: 77063; 77067

== ENCOUNTER → 2024-02-19 09:57 | Outpatient (CLI) | payer MEDICARE, SELFPAY ==
[2024-02-19 10:55] LABS: Add Manual Diff / Slide Review NO; Basophils Absolute Auto 100 /uL (0-100); Basophils Percent Auto 1.3 % (0-2); Eosinophils Absolute Auto 200 /uL (0-450); Eosinophils Percent Auto 4.8 % (2-4); Hemoglobin 12.4 g/dL (12.0-16.0); Lymphocytes Absolute Auto 1900 /uL (1100-4500); Lymphocytes Percent Auto 43.3 % (25-40); Mean Corpuscular HGB Conc 34.4 % (30-36); Mean Corpuscular Hemoglobin 31.5 PG (26-34); Mean Corpuscular Volume 91.6 fL (80-100); Monocytes Absolute Auto 400 /uL (0-900); Monocytes Percent Auto 9.6 % (3-14); Neutrophils Absolute Auto 1800 /uL (1500-7000); Platelet Count 188 X10^3/uL (150-400); Red Blood Cell Count 3.93 X10^6/uL (4.0-5.2); Red Cell Distribution Width 13.2 % (11.6-14.8); White Blood Cell Count 4.4 X10^3/uL (4.5-11.0)
[2024-02-19 12:36] LABS: Alanine Aminotransferase 23 IU/L (<35); Albumin 4.4 g/dL (3.5-5.0); Albumin Globulin Ratio 1.5 (1.0-2.8); Alkaline Phosphatase 63 U/L (38-126); Aspartate Aminotransferase 30 IU/L (14-36); BUN Creatinine Ratio 15.1 (6-22); Blood Urea Nitrogen 13 mg/dL (7-17); Calcium 9.3 mg/dL (8.4-10.2); Carbon Dioxide 27 mmol/L (22-32); Chloride 107 mmol/L (98-107); Cholesterol 191 mg/dL (140-199); Estimated Glomerular Filt Rate > 60 mL/min (>60); Globulin 2.9 g/dL (1.7-4.1); Glucose 104 mg/dL (80-110); HDL Cholesterol 65 mg/dL (40-60); HEMOLYSIS < 15 (0-50); LDL Cholesterol Calculated 94 mg/dL (<100); Sodium 140 mmol/L (137-145); Total Protein 7.3 g/dL (6.3-8.2); Triglycerides 158 mg/dL (35-150)
[2024-02-19 12:44] LABS: Free T4, Direct Thyroxine 1.12 ng/dL (0.78-2.19)
[2024-02-19 12:58] LABS: Thyroid Stimulating Hormone 2.44 uIU/mL (0.47-4.68)
== END ==
PROVIDERS: PCP Internal Medicine; Referring Provider Internal Medicine; Visit Provider Internal Medicine
DX: I10 Essential (primary) hypertension (principal); E78.5 Hyperlipidemia, unspecified; Z13.0 Encounter for screening for diseases of the blood and blood-forming organs and certain disorders involving the immune mechanism
CPT/HCPCS: 36415; 80053; 80061; 84439; 84443; 85025

== ENCOUNTER → 2024-06-03 10:48 | Outpatient (CLI) | payer MEDICARE, SELFPAY ==
[2024-06-03 11:29] LABS: Add Manual Diff / Slide Review NO; Basophils Absolute Auto 100 /uL (0-100); Basophils Percent Auto 2.1 % (0-2); Eosinophils Absolute Auto 300 /uL (0-450); Eosinophils Percent Auto 5.5 % (2-4); Hematocrit 38.5 % (36-46); Hemoglobin 13.5 g/dL (12.0-16.0); Lymphocytes Absolute Auto 2000 /uL (1100-4500); Lymphocytes Percent Auto 43.7 % (25-40); Mean Corpuscular HGB Conc 35.1 % (30-36); Mean Corpuscular Volume 91.1 fL (80-100); Monocytes Absolute Auto 400 /uL (0-900); Monocytes Percent Auto 9.7 % (3-14); Neutrophils Absolute Auto 1800 /uL (1500-7000); Platelet Count 229 X10^3/uL (150-400); Red Blood Cell Count 4.23 X10^6/uL (4.0-5.2); White Blood Cell Count 4.6 X10^3/uL (4.5-11.0)
[2024-06-03 12:06] LABS: Alanine Aminotransferase 46 IU/L (<35); Albumin 4.6 g/dL (3.5-5.0); Albumin Globulin Ratio 1.4 (1.0-2.8); Alkaline Phosphatase 63 U/L (38-126); Aspartate Aminotransferase 45 IU/L (14-36); BUN Creatinine Ratio 14.3 (6-22); Blood Urea Nitrogen 12 mg/dL (7-17); Calcium 9.7 mg/dL (8.4-10.2); Carbon Dioxide 26 mmol/L (22-32); Chloride 99 mmol/L (98-107); Cholesterol 198 mg/dL (140-199); Estimated Glomerular Filt Rate > 60 mL/min (>60); Globulin 3.3 g/dL (1.7-4.1); Glucose 112 mg/dL (80-110); HDL Cholesterol 76 mg/dL (40-60); HEMOLYSIS < 15 (0-50); LDL Cholesterol Calculated 86 mg/dL (<100); Potassium 4.7 mmol/L (3.4-5.1); Sodium 134 mmol/L (137-145); Total Protein 7.9 g/dL (6.3-8.2); Triglycerides 180 mg/dL (35-150)
[2024-06-03 12:23] LABS: Free T4, Direct Thyroxine 1.04 ng/dL (0.78-2.19)
[2024-06-03 12:36] LABS: Thyroid Stimulating Hormone 2.73 uIU/mL (0.47-4.68)
== END ==
PROVIDERS: PCP Internal Medicine; Referring Provider Internal Medicine; Visit Provider Internal Medicine
DX: D72.819 Decreased white blood cell count, unspecified (principal); I1A.0 Resistant hypertension; E78.5 Hyperlipidemia, unspecified; I10 Essential (primary) hypertension
CPT/HCPCS: 36415; 80053; 80061; 84439; 84443; 85025

== ENCOUNTER 2024-07-12 05:32 | Emergency (ER) | payer MEDICARE, SELFPAY ==
[2024-07-12] VITALS (8 sets, daily range): BP systolic 127–203; BP diastolic 60–92; PULSE 66–87; RESP 18; TEMP 36.8–37; O2SAT 96–98; BMI 26.4
--- NOTE | 2024-07-12 05:42 | ED_ITS ---
HPI - General Adult <Leola Martinez MD - Last Filed: 07/12/24 22:51> General Chief complaint: Hypertension Stated complaint: high blood pressure, shakey Time Seen by Provider: 07/12/24 05:33 History of Present Illness HPI narrative: 79-year-old female with history of hypertension presents by private vehicle from home for elevated blood pressure readings over the last 2-3 days as well as a shaky sensation. Patient also reports a sensation that her face feels hot. Patient states that for the last several days her blood pressures has been running 140s over 90s, which is unusual for her. This morning the patient woke her family member up and told her that she felt very shaky and needed to come to the ER. She did not measure her blood pressure this morning or take any of her usual morning medicines, which include amlodipine, atenolol, losartan. Patient denies pain or any other symptoms. Related Data Previous Rx's Medication Instructions Recorded ibuprofen 600 mg tablet 600 mg PO Q6HP PRN #20 tabs 08/24/16 meloxicam 15 mg tablet See Rx Instructions PO DAILY #30 09/05/18 tabs Disabled Parking Permit See Rx Instructions .Route 09/12/18 .COMPLEX #1 unit atenolol 50 mg tablet 50 mg PO QDAY ##90 10/18/18 chlorthalidone 25 mg tablet 25 mg PO QDAY #90 tabs 10/18/18 simvastatin 40 mg tablet (Zocor) 40 mg PO Q DAY #90 tabs 10/18/18 Allergies Allergy/AdvReac Type Severity Reaction Status Date / Time aspirin [ASPIRIN] Allergy Unknown stomach Unverified 07/05/23 17:54 ache codeine [CODEINE] Allergy Unknown Pressure Unverified 07/05/23 17:54 in head Patient History <Leola Martinez MD - Last Filed: 07/12/24 22:51> Medical History Measles Chicken pox Surgical History Anesthesia Status post knee surgery Family History Grandfather Cancer Grandmother Cancer Mother Hypertension High cholesterol Social History Smoking Status: Former smoker Smoking Status: Former smoker Substance Use Type: does not use Exam <Leola Martinez MD - Last Filed: 07/12/24 22:51> Initial Vital Signs Initial Vital Signs: Vital Signs Pulse Rate 87 07/12/24 05:39 Pulse Oximetry 98 07/12/24 05:39 Const: Awake, alert, no acute distress, nontoxic appearing Cardiac: regular rate, regular rhythm RESP: unlabored, clear bilaterally, no wheezing GI: Soft, nontender, nondistended MSK: No edema, full range of motion Skin: Warm, Dry, intact, no rashes Neuro: AO x3, CN II-XII grossly intact, moves all extremities <Manolo Rosado DO - Last Filed: 07/12/24 07:06> Initial Vital Signs Initial Vital Signs: Vital Signs Pulse Rate 87 07/12/24 05:39 Pulse Oximetry 98 07/12/24 05:39 Course <Leola Martinez MD - Last Filed: 07/12/24 22:51> Orders Ordered: Discontinued Medications Acetaminophen (Acetaminophen 325 Mg Tablet) 975 mg PO NOW ONE Stop: 07/12/24 06:20 Last Admin: 07/12/24 06:36 Dose: Not Given Documented By: DOM Amlodipine Besylate (Amlodipine 5 Mg Tablet) 10 mg PO NOW ONE Stop: 07/12/24 05:42 Last Admin: 07/12/24 05:53 Dose: 10 mg Documented By: DOM Atenolol (Atenolol 50 Mg Tablet) 50 mg PO NOW ONE Stop: 07/12/24 05:42 Last Admin: 07/12/24 05:55 Dose: 50 mg Documented By: DOM Ketorolac Tromethamine (Ketorolac 30 Mg/Ml Vial) 15 mg IV NOW ONE Stop: 07/12/24 06:20 Last Admin: 07/12/24 06:37 Dose: Not Given Documented By: DOM Losartan Potassium (Losartan 50 Mg Tablet) 100 mg PO NOW ONE Stop: 07/12/24 05:42 Last Admin: 07/12/24 05:56 Dose: 100 mg Documented By: DOM Vital Signs Vital signs: Vital Signs - 8 hr 07/12/24 05:39 07/12/24 05:41 07/12/24 05:56 Temperature 98.6 F Pulse Rate 87 85 75 Respiratory Rate 18 Blood Pressure 203/92 H 203/92 H Pulse Oximetry 98 97 Oxygen Delivery Method Room Air 07/12/24 06:00 07/12/24 06:01 07/12/24 06:01 Temperature Pulse Rate 74 75 Respiratory Rate Blood Pressure 146/68 H Pulse Oximetry 97 97 Oxygen Delivery Method 07/12/24 06:30 07/12/24 06:30 Temperature 98.2 F Pulse Rate 67 Respiratory Rate 18 Blood Pressure 162/67 H Pulse Oximetry 96 Oxygen Delivery Method <Manolo Rosado DO - Last Filed: 07/12/24 07:06> Orders Ordered: Discontinued Medications Acetaminophen (Acetaminophen 325 Mg Tablet) 975 mg PO NOW ONE Stop: 07/12/24 06:20 Last Admin: 07/12/24 06:36 Dose: Not Given Documented By: DOM Amlodipine Besylate (Amlodipine 5 Mg Tablet) 10 mg PO NOW ONE Stop: 07/12/24 05:42 Last Admin: 07/12/24 05:53 Dose: 10 mg Documented By: DOM Atenolol (Atenolol 50 Mg Tablet) 50 mg PO NOW ONE Stop: 07/12/24 05:42 Last Admin: 07/12/24 05:55 Dose: 50 mg Documented By: DOM Ketorolac Tromethamine (Ketorolac 30 Mg/Ml Vial) 15 mg IV NOW ONE Stop: 07/12/24 06:20 Last Admin: 07/12/24 06:37 Dose: Not Given Documented By: DOM Losartan Potassium (Losartan 50 Mg Tablet) 100 mg PO NOW ONE Stop: 07/12/24 05:42 Last Admin: 07/12/24 05:56 Dose: 100 mg Documented By: DOM Vital Signs Vital signs: Vital Signs - 8 hr 07/12/24 05:39 07/12/24 05:41 07/12/24 05:56 Temperature 98.6 F Pulse Rate 87 85 75 Respiratory Rate 18 Blood Pressure 203/92 H 203/92 H Pulse Oximetry 98 97 Oxygen Delivery Method Room Air 07/12/24 06:00 07/12/24 06:01 07/12/24 06:01 Temperature Pulse Rate 74 75 Respiratory Rate Blood Pressure 146/68 H Pulse Oximetry 97 97 Oxygen Delivery Method 07/12/24 06:30 07/12/24 06:30 Temperature 98.2 F Pulse Rate 67 Respiratory Rate 18 Blood Pressure 162/67 H Pulse Oximetry 96 Oxygen Delivery Method Medical Decision Making <Leola Martinez MD - Last Filed: 07/12/24 22:51> Lab Data 07/12/24 05:50 07/12/24 05:50 Labs: Lab Results 07/12/24 07/12/24 Range/Units 05:50 06:58 WBC 5.3 (4.5-11.0) X10^3/uL RBC 4.35 (4.0-5.2) X10^6/uL Hgb 13.8 (12.0-16.0) g/dL Hct 40.1 (36-46) % MCV 92.3 (80-100) fL MCH 31.7 (26-34) PG MCHC 34.4 (30-36) % RDW 12.9 (11.6-14.8) % Plt Count 213 (150-400) X10^3/uL Neut % (Auto) 38.4 L (50-75) % Lymph % (Auto) 48.1 H (25-40) % Mcdowell % (Auto) 7.4 (3-14) % Eos % (Auto) 4.8 H (2-4) % Baso % (Auto) 1.3 (0-2) % Neut # (Auto) 2000 (2515-4881) /uL Lymph # (Auto) 2600 (4842-7706) /uL Mcdowell # (Auto) 400 (0-900) /uL Eos # (Auto) 300 (0-450) /uL Baso # (Auto) 100 (0-100) /uL Sodium 137 (137-145) mmol/L Potassium 3.8 (3.4-5.1) mmol/L Chloride 105 (98-107) mmol/L Carbon Dioxide 23 (22-32) mmol/L BUN 14 (7-17) mg/dL Creatinine 0.91 (0.52-1.04) mg/dL Estimated GFR > 60 (>60) mL/min BUN/Creatinine Ratio 15.4 (6-22) Glucose 141 H (80-110) mg/dL Calcium 9.5 (8.4-10.2) mg/dL Total Bilirubin 0.7 (0.2-1.3) mg/dL AST 40 H (14-36) IU/L ALT 36 H (<35) IU/L Alkaline Phosphatase 69 (38-126) U/L Total Protein 8.0 (6.3-8.2) g/dL Albumin 4.7 (3.5-5.0) g/dL Globulin 3.3 (1.7-4.1) g/dL Albumin/Globulin Ratio 1.4 (1.0-2.8) Urine RBC 0-1/hpf (0-5/HPF) Urine WBC 0-1/hpf (0-5/HPF) Ur Squamous Epith Cells 0-1 /hpf (0-5/HPF) Urine Bacteria None seen (None) Ur Culture Indicated? Cult not indicated Vol Urine Centrifuged 10ml (spun) Urine Dip Bedside Urine Glucose Negative Bedside Urine Bilirubin - Negative Bedside Urine Ketone - Negative Urine Specific [place] 1.010 Bedside Urine Occult Blood +/- Bedside Urine pH 6.5 Bedside Urine Protein +/- 15 Bedside Urine Urobilinogen - Negative Bedside Urine Nitrite - Negative Bedside Urine Leukocytes - Negative Esterase Point of care testing: Urine Dip Bedside Urine Glucose Negative Bedside Urine Bilirubin - Negative Bedside Urine Ketone - Negative Urine Specific [place] 1.010 Bedside Urine Occult Blood +/- Bedside Urine pH 6.5 Bedside Urine Protein +/- 15 Bedside Urine Urobilinogen - Negative Bedside Urine Nitrite - Negative Bedside Urine Leukocytes - Negative Esterase MDM Narrative Medical decision making narrative: Well-appearing patient with facial flushing and shakiness. Immediately after presentation to the emergency department patient did have markedly elevated blood pressure, however she had just ambulated from the waiting room to the ED bed and was quite anxious about her blood pressure. After being allowed to rest in ED bed for several minutes blood pressure returned to much closer to normal limits. Patient has not taken her daily blood pressure medications, and her morning doses were ordered. Labs ordered. Care signed to Dr. Rosado at 0700 Patient was signed out to me Patient presented to the emergency department complaining of high blood pressures, stating that blood pressures were as high as 140 systolic, does have a history of hypertension, did not take her blood pressure medications prior to arrival in the emergency department, patient was given her antihypertensives here in the emergency department 0700: lab work without any signs of elevation in creatinine, urinalysis normal, patient without any headache visual disturbances, no chest pain or shortness of breath. She will be safe for discharge home with outpatient follow-up <Manolo DO Alonzo - Last Filed: 07/12/24 07:06> Differential Diagnosis Differential Diagnosis: Asymptomatic hypertension, elevated creatinine, electrolyte abnormality Lab Data Labs: Lab Results 07/12/24 07/12/24 Range/Units 05:50 06:58 WBC 5.3 (4.5-11.0) X10^3/uL RBC 4.35 (4.0-5.2) X10^6/uL Hgb 13.8 (12.0-16.0) g/dL Hct 40.1 (36-46) % MCV 92.3 (80-100) fL MCH 31.7 (26-34) PG MCHC 34.4 (30-36) % RDW 12.9 (11.6-14.8) % Plt Count 213 (150-400) X10^3/uL Neut % (Auto) 38.4 L (50-75) % Lymph % (Auto) 48.1 H (25-40) % Mcdowell % (Auto) 7.4 (3-14) % Eos % (Auto) 4.8 H (2-4) % Baso % (Auto) 1.3 (0-2) % Neut # (Auto) 2000 (5055-3900) /uL Lymph # (Auto) 2600 (5574-2795) /uL [place]cdowell # (Auto) 400 (0-900) /uL Eos # (Auto) 300 (0-450) /uL Baso # (Auto) 100 (0-100) /uL Sodium 137 (137-145) mmol/L Potassium 3.8 (3.4-5.1) mmol/L Chloride 105 (98-107) mmol/L Carbon Dioxide 23 (22-32) mmol/L BUN 14 (7-17) mg/dL Creatinine 0.91 (0.52-1.04) mg/dL Estimated GFR > 60 (>60) mL/min BUN/Creatinine Ratio 15.4 (6-22) Glucose 141 H (80-110) mg/dL Calcium 9.5 (8.4-10.2) mg/dL Total Bilirubin 0.7 (0.2-1.3) mg/dL AST 40 H (14-36) IU/L ALT 36 H (<35) IU/L Alkaline Phosphatase 69 (38-126) U/L Total Protein 8.0 (6.3-8.2) g/dL Albumin 4.7 (3.5-5.0) g/dL Globulin 3.3 (1.7-4.1) g/dL Albumin/Globulin Ratio 1.4 (1.0-2.8) Urine RBC 0-1/hpf (0-5/HPF) Urine WBC 0-1/hpf (0-5/HPF) Ur Squamous Epith Cells 0-1 /hpf (0-5/HPF) Urine Bacteria None seen (None) Ur Culture Indicated? Cult not indicated Vol Urine Centrifuged 10ml (spun) Urine Dip Bedside Urine Glucose Negative Bedside Urine Bilirubin - Negative Bedside Urine Ketone - Negative Urine Specific [place] 1.010 Bedside Urine Occult Blood +/- Bedside Urine pH 6.5 Bedside Urine Protein +/- 15 Bedside Urine Urobilinogen - Negative Bedside Urine Nitrite - Negative Bedside Urine Leukocytes - Negative Esterase Point of care testing: Urine Dip Bedside Urine Glucose Negative Bedside Urine Bilirubin - Negative Bedside Urine Ketone - Negative Urine Specific [place] 1.010 Bedside Urine Occult Blood +/- Bedside Urine pH 6.5 Bedside Urine Protein +/- 15 Bedside Urine Urobilinogen - Negative Bedside Urine Nitrite - Negative Bedside Urine Leukocytes - Negative Esterase MDM Narrative Medical decision making narrative: Patient was signed out to me Patient presented to the emergency department complaining of high blood pressures, stating that blood pressures were as high as 140 systolic, does have a history of hypertension, did not take her blood pressure medications prior to arrival in the emergency department, patient was given her antihypertensives here in the emergency department 0700: lab work without any signs of elevation in creatinine, urinalysis normal, patient without any headache visual disturbances, no chest pain or shortness of breath. She will be safe for discharge home with outpatient follow-up Discharge Plan Departure Patient Disposition: Home Clinical Impression: Asymptomatic hypertension Activity Restrictions/Additional Instructions: Please read the discharge instructions sheet carefully and bring all papers to all doctor follow-up visits, as it may contain information that your doctor may want to see. Disease processes change and evolve, if your symptoms worsen or if you develop any new symptoms that are concerning to you please return for evaluation. Your evaluation today does not show any evidence of any life- threatening/serious illnesses requiring admission to the hospital or surgery. Please follow-up with your doctor for re-evaluation in approximately 1 day. Seek immediate medical attention for any worrisome symptoms. Prescriptions: No Action ibuprofen 600 MG tablet 600 mg PO Q6HP PRNQty: 20 0RF Disabled Parking Permit See Rx Instructions .Route .COMPLEX Qty: 1 0RF Rx Instructions: I find this patient to be medically disabled and qualify for disabled parking as indicated and signed on the accompanying disabled parking application for individuals. simvastatin [Zocor] 40 mg tablet 40 mg PO Q DAY Qty: 90 0RF chlorthalidone 25 mg tablet 25 mg PO QDAY Qty: 90 0RF atenolol 50 mg tablet 50 mg PO QDAY Qty: 90 0RF meloxicam 15 mg tablet See Rx Instructions PO DAILY Qty: 30 2RF Dose Instruction: PO DAILY; Rx Instructions: 1/2-1 tablet PO DAILY; Referrals: Darby Koo ARNP [Primary Care Provider] - Stand Alone Forms: Patient Portal/API
--- NOTE | 2024-07-12 05:45 | PC.NURSE ---
pt woke this am and felt like her bp was up because her face felt hot and cold and she did not feel well she did not take her bp nor take her meds but came to the ed to be evaluated denies any cp
[2024-07-12] MEDS: AMLODIPINE 5 MG TABLET 10 MG PO (05:53)
[2024-07-12] MEDS: atenoloL 50 MG TABLET PO (05:55)
[2024-07-12] MEDS: LOSARTAN 50 MG TABLET 100 MG PO (05:56)
[2024-07-12 06:06] LABS: Add Manual Diff / Slide Review NO; Basophils Absolute Auto 100 /uL (0-100); Basophils Percent Auto 1.3 % (0-2); Eosinophils Absolute Auto 300 /uL (0-450); Eosinophils Percent Auto 4.8 % (2-4); Hematocrit 40.1 % (36-46); Hemoglobin 13.8 g/dL (12.0-16.0); Lymphocytes Absolute Auto 2600 /uL (1100-4500); Lymphocytes Percent Auto 48.1 % (25-40); Mean Corpuscular HGB Conc 34.4 % (30-36); Mean Corpuscular Hemoglobin 31.7 PG (26-34); Mean Corpuscular Volume 92.3 fL (80-100); Monocytes Absolute Auto 400 /uL (0-900); Monocytes Percent Auto 7.4 % (3-14); Neutrophils Absolute Auto 2000 /uL (1500-7000); Neutrophils Percent Auto 38.4 % (50-75); Platelet Count 213 X10^3/uL (150-400); Red Blood Cell Count 4.35 X10^6/uL (4.0-5.2); Red Cell Distribution Width 12.9 % (11.6-14.8); White Blood Cell Count 5.3 X10^3/uL (4.5-11.0)
[2024-07-12 06:13] LABS: Alanine Aminotransferase 36 IU/L (<35); Albumin 4.7 g/dL (3.5-5.0); Albumin Globulin Ratio 1.4 (1.0-2.8); Alkaline Phosphatase 69 U/L (38-126); Aspartate Aminotransferase 40 IU/L (14-36); BUN Creatinine Ratio 15.4 (6-22); Bilirubin Total 0.7 mg/dL (0.2-1.3); Blood Urea Nitrogen 14 mg/dL (7-17); Calcium 9.5 mg/dL (8.4-10.2); Carbon Dioxide 23 mmol/L (22-32); Chloride 105 mmol/L (98-107); Estimated Glomerular Filt Rate > 60 mL/min (>60); Globulin 3.3 g/dL (1.7-4.1); Glucose 141 mg/dL (80-110); HEMOLYSIS < 15 (0-50); Potassium 3.8 mmol/L (3.4-5.1); Sodium 137 mmol/L (137-145)
--- NOTE | 2024-07-12 06:46 | EKG_ITS ---
[address] [address] Test Date: 2024-07-12 Pat Name: Evita Walters Department: 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
[2024-07-12 07:09] LABS: Urine Volume 10mL (spun)
[2024-07-12 07:15] LABS: Bacteria Urine None Seen; Culture Indicated Urine Cult Not Indicated; RBC Urine 0-1/HPF (0-5/HPF); Squamous Epithelial Cell Urine 0-1 /HPF (0-5/HPF); WBC Urine 0-1/HPF (0-5/HPF)
== END 2024-07-12 07:38 | disposition home or self-care (01) ==
PROVIDERS: Emergency Medicine; Emergency Provider Student in an Organized Health Care Education/Training Program; PCP Internal Medicine
DX: I10 Essential (primary) hypertension (principal); R07.9 Chest pain, unspecified
CPT/HCPCS: 36415; 80053; 81003; 81015; 85025; 87086; 93005; 99283; 99284

== ENCOUNTER → 2024-11-27 16:06 | Outpatient (CLI) | payer MEDICARE, SELFPAY ==
[2024-11-27 17:33] LABS: Alanine Aminotransferase 34 IU/L (<35); Albumin 4.4 g/dL (3.5-5.0); Albumin Globulin Ratio 1.5 (1.0-2.8); Alkaline Phosphatase 78 U/L (38-126); Aspartate Aminotransferase 38 IU/L (14-36); BUN Creatinine Ratio 15.7 (6-22); Bilirubin Total 0.5 mg/dL (0.2-1.3); Blood Urea Nitrogen 16 mg/dL (7-17); Calcium 9.7 mg/dL (8.4-10.2); Carbon Dioxide 27 mmol/L (22-32); Chloride 105 mmol/L (98-107); Estimated Glomerular Filt Rate 55 mL/min (>60); Globulin 2.9 g/dL (1.7-4.1); Glucose 106 mg/dL (80-110); HEMOLYSIS < 15 (0-50); Potassium 4.3 mmol/L (3.4-5.1); Sodium 137 mmol/L (137-145); Total Protein 7.3 g/dL (6.3-8.2)
== END ==
PROVIDERS: Registered Nurse; PCP Internal Medicine; Referring Provider Internal Medicine; Visit Provider Internal Medicine
DX: I1A.0 Resistant hypertension (principal)
CPT/HCPCS: 36415; 80053; 82088

== ENCOUNTER → 2024-12-11 16:20 | Outpatient (CLI) | payer MEDICARE, SELFPAY ==
[2024-12-11 17:31] LABS: Alanine Aminotransferase 39 IU/L (<35); Albumin Globulin Ratio 1.4 (1.0-2.8); Alkaline Phosphatase 68 U/L (38-126); Aspartate Aminotransferase 43 IU/L (14-36); BUN Creatinine Ratio 21.2 (6-22); Bilirubin Total 0.5 mg/dL (0.2-1.3); Blood Urea Nitrogen 22 mg/dL (7-17); Calcium 9.7 mg/dL (8.4-10.2); Carbon Dioxide 23 mmol/L (22-32); Chloride 103 mmol/L (98-107); Estimated Glomerular Filt Rate 54 mL/min (>60); Globulin 3.5 g/dL (1.7-4.1); Glucose 108 mg/dL (80-110); HEMOLYSIS < 15 (0-50); Potassium 4.3 mmol/L (3.4-5.1); Sodium 137 mmol/L (137-145); Total Protein 8.5 g/dL (6.3-8.2)
== END ==
PROVIDERS: PCP Registered Nurse; Referring Provider Registered Nurse; Visit Provider Registered Nurse
DX: I1A.0 Resistant hypertension (principal)
CPT/HCPCS: 36415; 80053; 82088

== ENCOUNTER → 2024-12-30 10:49 | Outpatient (CLI) | payer MEDICARE, SELFPAY ==
--- NOTE | 2024-12-30 10:50 | DI.MG.S_ITS ---
MM screening mammo BI: 12/30/2024. BI-RADS: 1 CLINICAL: 79-year old female for bilateral screening mammogram. Tyrer-Cuzick lifetime risk of 0.9%. No personal or first-degree family history of breast cancer. Current reported family history of breast cancer: maternal grandmother. PRIOR EXAMS 12/02/2023, 09/17/2022, 02/10/2019, 01/29/2018. MAMMOGRAPHY TECHNIQUE: 2D and 3D (tomosynthesis) digital mammographic views obtained, with additional images as needed for full coverage. Current study was also evaluated with a Computer Aided Detection (CAD) system. DENSITY B. There are scattered areas of fibroglandular density. MAMMOGRAPHY FINDINGS Bilateral: No suspicious mass, asymmetry, microcalcification, or other abnormality seen. IMPRESSION: * No evidence of malignancy. RECOMMENDATIONS Bilateral * Annual screening mammography. OVERALL ASSESSMENT CATEGORY BI-RADS-1: Negative. The [employer] recommends annual screening mammography beginning at age 40 for women with average risk of breast cancer. ELECTRONICALLY SIGNED: Hannah Herbert M.D. on 01/01/2025 at 03:21:27 PM PT Interpreting Station ID: [id number]
== END ==
PROVIDERS: PCP Registered Nurse; Referring Provider Registered Nurse; Visit Provider Registered Nurse
DX: Z12.31 Encounter for screening mammogram for malignant neoplasm of breast (principal); Z80.3 Family history of malignant neoplasm of breast
CPT/HCPCS: 77063; 77067

== ENCOUNTER → 2025-01-23 08:26 | Outpatient (CLI) | payer MEDICARE, SELFPAY ==
--- NOTE | 2025-01-23 08:27 | DI.US.S_ITS ---
PROCEDURE: US ABDOMEN LIMITED INDICATIONS: ELEVATED TOTAL PROTEIN TECHNIQUE: Real-time scanning was performed of the abdominal and retroperitoneal organs, with image documentation. COMPARISON: None. FINDINGS: Liver: Hepatic fatty infiltration with focal fatty sparing adjacent to the gallbladder fossa. No focal mass lesion. Gallbladder: Sonolucent without evidence cholelithiasis, gallbladder wall thickening or pericholecystic fluid. No sonographic Cooper sign. Biliary ducts: Intrahepatic bile ducts are non-dilated. Extrahepatic bile duct caliber measures 8.4 mm. Pancreas: Visualized portions of the pancreas are sonographically normal. Miscellaneous: No free abdominal fluid. IMPRESSION: Hepatic fatty infiltration without focal mass lesion. Approved by: Jericho Guo M.D. on 01/23/2025 at 16:51
== END ==
PROVIDERS: PCP Registered Nurse; Referring Provider Registered Nurse; Visit Provider Registered Nurse
DX: K76.0 Fatty (change of) liver, not elsewhere classified (principal); R77.8 Other specified abnormalities of plasma proteins; R79.89 Other specified abnormal findings of blood chemistry
CPT/HCPCS: 76705

== ENCOUNTER → 2025-01-27 10:53 | Outpatient (CLI) | payer MEDICARE, SELFPAY ==
[2025-01-27 12:15] LABS: Creatinine Urine Random 164.02 mg/dL
[2025-01-27 16:23] LABS: Hepatitis B Surface Antigen NEGATIVE s/c (NEGATIVE)
[2025-01-28 08:07] LABS: Hepatitis B Core Antibody Negative (Negative)
[2025-01-30 02:07] LABS: Hepatitis Be Antibody Non Reactive (Negative)
== END ==
LOC: LAB 10:58
PROVIDERS: PCP Registered Nurse; Referring Provider Registered Nurse; Visit Provider Registered Nurse
DX: R79.89 Other specified abnormal findings of blood chemistry (principal); Z11.59 Encounter for screening for other viral diseases; R77.8 Other specified abnormalities of plasma proteins; I10 Essential (primary) hypertension; N28.9 Disorder of kidney and ureter, unspecified
CPT/HCPCS: 36415; 82043; 82570; 86704; 86707; 86803; 87340

== ENCOUNTER → 2025-03-17 11:07 | Outpatient (CLI) | payer MEDICARE, SELFPAY ==
[2025-03-17 12:42] LABS: Alanine Aminotransferase 36 IU/L (<35); Albumin 4.8 g/dL (3.5-5.0); Albumin Globulin Ratio 1.7 (1.0-2.8); Alkaline Phosphatase 60 U/L (38-126); Aspartate Aminotransferase 42 IU/L (14-36); BUN Creatinine Ratio 12.3 (6-22); Blood Urea Nitrogen 10 mg/dL (7-17); Calcium 9.8 mg/dL (8.4-10.2); Carbon Dioxide 27 mmol/L (22-32); Chloride 101 mmol/L (98-107); Estimated Glomerular Filt Rate > 60 mL/min (>60); Globulin 2.9 g/dL (1.7-4.1); Glucose 113 mg/dL (70-99); HEMOLYSIS < 15 (0-50); Potassium 4.8 mmol/L (3.4-5.1); Sodium 135 mmol/L (137-145); Total Protein 7.7 g/dL (6.3-8.2)
== END ==
PROVIDERS: PCP Registered Nurse; Referring Provider Registered Nurse; Visit Provider Registered Nurse
DX: K76.0 Fatty (change of) liver, not elsewhere classified (principal); R77.8 Other specified abnormalities of plasma proteins; R79.89 Other specified abnormal findings of blood chemistry
CPT/HCPCS: 36415; 80053

== ENCOUNTER → 2025-05-12 10:56 | Outpatient (CLI) | payer MEDICARE, SELFPAY ==
[2025-05-12 11:50] LABS: Add Manual Diff / Slide Review NO; Hematocrit 41.0 % (36-46); Hemoglobin 14.3 g/dL (12.0-16.0); Lymphocytes Absolute Auto 2100 /uL (1100-4500); Mean Corpuscular HGB Conc 34.9 % (30-36); Mean Corpuscular Hemoglobin 31.9 PG (26-34); Mean Corpuscular Volume 91.4 fL (80-100); Platelet Count 236 X10^3/uL (150-400)
[2025-05-12 12:25] LABS: Alanine Aminotransferase 34 IU/L (<35); Albumin 5.0 g/dL (3.5-5.0); Albumin Globulin Ratio 1.5 (1.0-2.8); Alkaline Phosphatase 68 U/L (38-126); Blood Urea Nitrogen 10 mg/dL (7-17); Calcium 10.0 mg/dL (8.4-10.2); Carbon Dioxide 26 mmol/L (22-32); Chloride 101 mmol/L (98-107); Cholesterol 210 mg/dL (140-199); Estimated Glomerular Filt Rate > 60 mL/min (>60); Globulin 3.3 g/dL (1.7-4.1); Glucose 116 mg/dL (70-99); HDL Cholesterol 71 mg/dL (40-60); HEMOLYSIS < 15 (0-50); Potassium 4.4 mmol/L (3.4-5.1); Sodium 137 mmol/L (137-145); Total Protein 8.3 g/dL (6.3-8.2); Triglycerides 183 mg/dL (35-150)
[2025-05-12 12:28] LABS: Hemoglobin A1C% w Est Avg Glu 5.9 % (4.0-6.0)
[2025-05-12 14:08] LABS: Microalbumi Creatinin Ratio Ur 80.0 ug/mg CR (<30)
[2025-05-12 14:31] LABS: Vitamin D 25 Hydroxy (D3) 84.5 ng/mL (30.0-100.0)
== END ==
PROVIDERS: PCP Registered Nurse; Referring Provider Registered Nurse; Visit Provider Registered Nurse
DX: I10 Essential (primary) hypertension (principal); R79.89 Other specified abnormal findings of blood chemistry; K76.9 Liver disease, unspecified; N28.9 Disorder of kidney and ureter, unspecified; R77.8 Other specified abnormalities of plasma proteins; R73.03 Prediabetes; E78.2 Mixed hyperlipidemia
CPT/HCPCS: 36415; 80053; 80061; 82043; 82306; 82570; 83036; 85025

== ENCOUNTER → 2025-05-22 16:22 | Outpatient (CLI) | payer MEDICARE, SELFPAY ==
[2025-05-24 16:39] LABS: Free Kappa Lt Chains, Serum 19.6 mg/L (3.3-19.4); Free Lambda Lt Chains,Serum 20.2 mg/L (5.7-26.3)
== END ==
PROVIDERS: PCP Registered Nurse; Referring Provider Registered Nurse; Visit Provider Registered Nurse
DX: D70.9 Neutropenia, unspecified (principal); R79.89 Other specified abnormal findings of blood chemistry; R80.9 Proteinuria, unspecified
CPT/HCPCS: 36415; 82784; 83883; 84155; 84156; 84165; 84166; 86334